=== PATIENT | female | born 1985 | race Caucasian/White ===

== ENCOUNTER → 2021-02-14 17:51 | Outpatient (CLI) | payer OTHER, SELFPAY ==
[2021-02-14 19:21] LABS: TSH w/ Reflex to FT4 1.77 uIU/mL (0.47-4.68)
== END ==
PROVIDERS: PCP Registered Nurse Diabetes Educator; Referring Provider Registered Nurse Diabetes Educator; Visit Provider Registered Nurse Diabetes Educator
DX: E03.8 Other specified hypothyroidism (principal); E06.3 Autoimmune thyroiditis
CPT/HCPCS: 36415; 84443

== ENCOUNTER → 2021-04-24 10:13 | Outpatient (CLI) | payer OTHER, SELFPAY ==
[2021-04-24 11:18] LABS: Hematocrit 38.4 % (36-46); Hemoglobin 13.1 g/dL (12.0-16.0); Mean Corpuscular Hemoglobin 29.5 PG (26-34); Mean Corpuscular Volume 86.6 fL (80-100); Platelet Count 295 X10^3/uL (150-400); Red Blood Cell Count 4.43 X10^6/uL (4.0-5.2); Red Cell Distribution Width 13.5 % (11.6-14.8); White Blood Cell Count 5.3 X10^3/uL (4.5-11.0)
[2021-04-24 12:40] LABS: Alanine Aminotransferase 23 IU/L (<35); Albumin 4.5 g/dL (3.5-5.0); Albumin Globulin Ratio 1.6 (1.0-2.8); Alkaline Phosphatase 53 U/L (38-126); Aspartate Aminotransferase 24 IU/L (14-36); BUN Creatinine Ratio 20.8 (6-22); Bilirubin Total 0.6 mg/dL (0.2-1.3); Blood Urea Nitrogen 10 mg/dL (7-17); Calcium 9.2 mg/dL (8.4-10.2); Carbon Dioxide 27 mmol/L (22-32); Chloride 103 mmol/L (98-107); Cholesterol 172 mg/dL (140-199); Estimated Glomerular Filt Rate > 60.0 mL/min (>60); Globulin 2.8 g/dL (1.7-4.1); Glucose 105 mg/dL (70-100); HDL Cholesterol 36 mg/dL (40-60); HEMOLYSIS < 15 (0-50); LDL Cholesterol Calculated 113 mg/dL (<100); Potassium 3.9 mmol/L (3.4-5.1); Sodium 139 mmol/L (137-145); Total Protein 7.3 g/dL (6.3-8.2); Triglycerides 113 mg/dL (35-150)
[2021-04-24 12:45] LABS: TSH w/ Reflex to FT4 2.32 uIU/mL (0.47-4.68)
[2021-04-24 12:46] LABS: Hemoglobin A1C% w Est Avg Glu 4.8 % (4.0-6.0)
[2021-04-24 12:49] LABS: Ferritin 34 ng/mL (6-137)
== END ==
PROVIDERS: PCP Registered Nurse Diabetes Educator; Referring Provider Registered Nurse Diabetes Educator; Visit Provider Registered Nurse Diabetes Educator
DX: E03.8 Other specified hypothyroidism (principal); E06.3 Autoimmune thyroiditis; L65.9 Nonscarring hair loss, unspecified; R53.83 Other fatigue
CPT/HCPCS: 36415; 80053; 80061; 82306; 82728; 83036; 84443; 85027

== ENCOUNTER 2021-09-17 12:31 | Emergency (ER) | payer OTHER, SELFPAY ==
[2021-09-17 12:41] VITALS: BP 141/83; PULSE 88; RESP 14; TEMP 37.3; O2SAT 99; BMI 31.0
[2021-09-17 13:29] LABS: Add Manual Diff / Slide Review NO; Basophils Absolute Auto 0 /uL (0-100); Basophils Percent Auto 0.5 % (0-2); Eosinophils Absolute Auto 100 /uL (0-450); Eosinophils Percent Auto 0.9 % (2-4); Hematocrit 38.4 % (36-46); Hemoglobin 13.2 g/dL (12.0-16.0); Lymphocytes Absolute Auto 1400 /uL (1100-4500); Lymphocytes Percent Auto 20.6 % (25-40); Mean Corpuscular HGB Conc 34.5 % (30-36); Mean Corpuscular Hemoglobin 29.5 PG (26-34); Mean Corpuscular Volume 85.6 fL (80-100); Monocytes Absolute Auto 400 /uL (0-900); Monocytes Percent Auto 5.6 % (3-14); Neutrophils Absolute Auto 5000 /uL (1500-7000); Neutrophils Percent Auto 72.4 % (50-75); Platelet Count 311 X10^3/uL (150-400); Red Blood Cell Count 4.49 X10^6/uL (4.0-5.2); Red Cell Distribution Width 14.3 % (11.6-14.8); White Blood Cell Count 6.8 X10^3/uL (4.5-11.0)
[2021-09-17 13:37] LABS: Prothrombin Time 11.4 SECONDS (10.1-12.7)
[2021-09-17 13:40] LABS: Alanine Aminotransferase 22 IU/L (<35); Albumin 4.7 g/dL (3.5-5.0); Albumin Globulin Ratio 1.4 (1.0-2.8); Alkaline Phosphatase 53 U/L (38-126); Aspartate Aminotransferase 25 IU/L (14-36); BUN Creatinine Ratio 20.4 (6-22); Bilirubin Total 0.6 mg/dL (0.2-1.3); Blood Urea Nitrogen 10 mg/dL (7-17); Calcium 9.3 mg/dL (8.4-10.2); Carbon Dioxide 26 mmol/L (22-32); Chloride 107 mmol/L (98-107); Creatine Kinase 53 U/L (30-135); Estimated Glomerular Filt Rate > 60.0 mL/min (>60); Globulin 3.3 g/dL (1.7-4.1); Glucose 100 mg/dL (70-100); HEMOLYSIS 21 (0-50); PTT Partial Thromboplastin Tim 34 SECONDS (26.4-36.2); Potassium 3.8 mmol/L (3.4-5.1); Sodium 140 mmol/L (137-145)
[2021-09-17 13:51] LABS: Troponin I < 0.012 ng/mL (0.01-0.034)
--- NOTE | 2021-09-17 13:52 | ED.NEUROSD ---
HPI - Neuro Symptoms/Deficit General Chief Complaint: Eye Problems Stated Complaint: blurred vision, sent by [facility] Time Seen by Provider: 09/17/21 13:41 Source: patient Mode of arrival: Ambulatory History of Present Illness HPI Narrative: Patient is a 35-year-old female who presents with atypical headache. She has had migraines in the past she gets 1 about once a week. Yesterday she was in the grocery store looking at her grocery list she looked up she was standing in front of the yogurt and really she had blurry vision in both eyes. She was not dizzy or lightheaded. Started feeling her heart pounding. She was able to make it through the checkout and into the car when she started having tingling in her face and more heart pounding and shortness of breath. Symptoms did resolve. She had no weakness. Her vision was only blurry for a few minutes. She had no difficulty speaking or facial droop. She then felt back to her normal self. She woke up this morning with atypical tension-like headache behind her eyes. She said this 1 is just different than all the other ones. Of but no visual changes today no numbness tingling or weakness. Overall feeling better. Her mom did have a stroke at the age of 50. She denies any chest pain palpitations fever neck pain or other symptoms today. On Anticoagulants: No Related Data Home Medications Medication Instructions Recorded Confirmed cholecalciferol (vitamin D3) 125 125 mcg PO DAILY 07/01/20 09/17/21 mcg (5,000 unit) capsule Previous Rx's Medication Instructions Recorded Tirosint 50 mcg capsule 50 mcg PO DAILY #90 cap NS 04/30/21 (levothyroxine) Allergies Allergy/AdvReac Type Severity Reaction Status Date / Time No Known Drug Allergies Allergy Verified 09/17/21 12:41 Review of Systems Review of Systems Narrative: GENERAL: Denies chills, fatigue, malaise, fever, sweats, travel HEENT: See HPI RESPIRATORY: Denies dyspnea, cough, wheezing, hemoptysis, sputum. CARDIOVASCULAR: Denies chest pain, palpitations, orthopnea, edema GASTROINTESTINAL: Denies nausea, vomiting, abdominal pain, diarrhea, constipation, melena. : Denies dysuria, frequency, incontinence, hematuria, urinary retention, flank pain. MUSCULOSKELETAL: Denies weakness, joint pain, or bony pain SKIN: No rash, no erythema, no pruritus NEUROLOGIC: See HPI PSYCHIATRIC: No concerning psychosocial issues. 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) Impaired fasting blood sugar Irregular menstrual cycle (~2019) Serum estradiol <50 pg/ml Surgical History Anesthesia [place] teeth removed (~2000) Family History Mother Hypertension Stroke Grandfather Diabetes mellitus History of heart disease Social History Smoking Status: Never smoker Smoking Status: Never smoker alcohol intake frequency: holidays/special occasions only Substance Use Type: does not use Exam Initial Vital Signs Initial Vital Signs: Vital Signs Temperature 99.1 F 09/17/21 12:41 Pulse Rate 88 09/17/21 12:41 Respiratory Rate 14 09/17/21 12:41 Blood Pressure 141/83 H 09/17/21 12:41 Pulse Oximetry 99 09/17/21 12:41 GENERAL: Well-appearing 35-year-old femaleand in no acute distress. HEENT: Head atraumatic,EOMI, pupils reactive, face symmetric, moist mucous membranes CARDIOVASCULAR: Regular rate and rhythm without murmurs, rubs or gallops. RESPIRATORY: Breath sounds equal bilaterally, no wheezes rales or rhonchi. ABDOMEN: Soft, nontender. Normoactive bowel sounds all 4 quadrants. No guarding or rebound. EXTREMITIES: Normal range of motion, no clubbing or edema. Neurovascularly intact NEUROLOGICAL: Alert and oriented x4.Normal gait and speech. Cranial nerves II through XII grossly intact. Good [id number], good [id number], strength equal bilaterally, no dysarthria or aphasia, sensation in tact to soft touch bilaterally, no visual changes, no facial droop SKIN: Warm, dry, no laceration, no petechiae, no rashes or lesions. Scores NIH Stroke Scale Level of Conciousness: Alert, keenly responsive Ask month/age: Answers both questions correctly. Open/close eyes, close hand: Performs both tasks correctly Best gaze horizontal: Normal Visual carr: No visual loss Facial palsy: Normal symetrical movement Left arm drift: No drift for full 10 sec Right arm drift: No drift for full 10 sec Left leg drift: No drift for full 5 sec Right leg drift: No drift for full 5 sec Limb ataxia: Absent Sensory on face/arms/legs: Normal, no sensory loss Best language: No aphasia, normal Dysarthria: Normal Extinction or inattention: No abnormality Total NIH Stroke scale score: 0 Course Orders Ordered: ED Orders 09/17/21 12:58 EKG-12 Lead Stat 09/17/21 13:15 Complete Blood Count AUTO DIFF Stat Comprehensive Metabolic Panel Stat Partial Thromboplastin Time Stat Prothrombin Time INR Stat Troponin & CK Cardiac Panel Stat 09/17/21 13:53 CT head/brain wo con Stat Discontinued Medications Ketorolac Tromethamine (Ketorolac 30 Mg/Ml Vial) 15 mg IV NOW ONE Stop: 09/17/21 13:54 Last Admin: 09/17/21 14:02 Dose: 15 mg Documented by: OVIDIO Vital Signs Vital signs: Vital Signs - 8 hr 09/17/21 12:41 09/17/21 15:02 Temperature 99.1 F Pulse Rate 88 70 Respiratory Rate 14 18 Blood Pressure 141/83 H 112/68 Pulse Oximetry 99 99 MDM - Neuro Symptoms/Deficit Lab Data Result diagrams: 09/17/21 13:15 09/17/21 13:15 Labs: Lab Results 09/17/21 09/17/21 09/17/21 Range/Units 13:15 13:15 13:15 WBC 6.8 (4.5-11.0) X10^3/uL RBC 4.49 (4.0-5.2) X10^6/uL Hgb 13.2 (12.0-16.0) g/dL Hct 38.4 (36-46) % MCV 85.6 (80-100) fL MCH 29.5 (26-34) PG MCHC 34.5 (30-36) % RDW 14.3 (11.6-14.8) % Plt Count 311 (150-400) X10^3/uL Neut % (Auto) 72.4 (50-75) % Lymph % (Auto) 20.6 L (25-40) % [place] % (Auto) 5.6 (3-14) % Eos % (Auto) 0.9 L (2-4) % Baso % (Auto) 0.5 (0-2) % Neut # (Auto) 5000 (1697-5768) /uL Lymph # (Auto) 1400 (3719-5476) /uL [place] # (Auto) 400 (0-900) /uL Eos # (Auto) 100 (0-450) /uL Baso # (Auto) 0 (0-100) /uL PT 11.4 (10.1-12.7) SECONDS INR 1.0 (0.9-1.3) APTT 34 (26.4-36.2) SECONDS Sodium 140 (137-145) mmol/L Potassium 3.8 (3.4-5.1) mmol/L Chloride 107 (98-107) mmol/L Carbon Dioxide 26 (22-32) mmol/L BUN 10 (7-17) mg/dL Creatinine 0.49 L (0.52-1.04) mg/dL Estimated GFR > 60.0 (>60) mL/min BUN/Creatinine Ratio 20.4 (6-22) Glucose 100 (70-100) mg/dL Calcium 9.3 (8.4-10.2) mg/dL Total Bilirubin 0.6 (0.2-1.3) mg/dL AST 25 (14-36) IU/L ALT 22 (<35) IU/L Alkaline Phosphatase 53 (38-126) U/L Total Creatine Kinase 53 (30-135) U/L CK-MB (CK-2) TNP CK-MB (CK-2) Rel Index TNP Troponin I < 0.012 (0.01-0.034) ng/mL Total Protein 8.0 (6.3-8.2) g/dL Albumin 4.7 (3.5-5.0) g/dL Globulin 3.3 (1.7-4.1) g/dL Albumin/Globulin Ratio 1.4 (1.0-2.8) Urine Dip Bedside Urine Glucose Negative Bedside Urine Bilirubin - Negative Bedside Urine Ketone - Negative Urine Specific [place] 1.020 Bedside Urine Occult Blood +/- Bedside Urine pH 7.0 Bedside Urine Protein - Negative Bedside Urine Urobilinogen 0.2 Bedside Urine Nitrite - Negative Bedside Urine Leukocytes +/- 15 Esterase ECG Data Interpretation: Normal sinus rhythm rate 76 AL interval 156 QRS [address] changes or T-wave inversion MDM Narrative Medical decision making narrative: Patient overall appears well she has absolutely no focal deficits. Some [place] she had brief episode of blurry vision gross sore and then had a mild anxiety reaction. She has no focal deficits today headache is a bit atypical for her head CT was done is of course negative. Blood work is reassuring. At this time no cause of episode of blurry vision yesterday. Recommend outpatient follow-up Discharge Plan Departure Patient Disposition: Home Clinical Impression: Headache Instructions: DI for Headache Activity Restrictions/Additional Instructions: *You have been diagnosed with headache *What to do: At this time blood work and CT scan are reassuring. He may need further workup for possible Neurology consultation if you continue to have frequent headaches. *Continue to take medications as directed *Follow up with your primary care provider in 2-3 days or call [phone] *Return to ER if you should have passing out, worsening blurry vision double vision, or any new, worsening or concerning symptoms Prescriptions: No Action levothyroxine [Tirosint] 50 mcg capsule 50 mcg PO DAILY Qty: 90 3RF cholecalciferol (vitamin D3) 125 mcg (5,000 unit) capsule 125 mcg PO DAILY 0RF Referrals: Donovan Hernandez ARNP [Primary Care Provider] -
--- NOTE | 2021-09-17 13:53 | DI.CT.S_ITS ---
PROCEDURE: CT HEAD/BRAIN WO CON INDICATIONS: atypical headache TECHNIQUE: Noncontrast 4.5 mm thick angled axial sections acquired from the foramen magnum to the vertex, with coronal and sagittal reformats. For radiation dose reduction, the following was used: automated exposure control, adjustment of mA and/or kV according to patient size. COMPARISON: None. FINDINGS: Image quality: Excellent. CSF spaces: Basal cisterns are patent. No extra-axial fluid collections. Ventricles are normal in size and shape. Brain: No midline shift. No intracranial masses or hemorrhage. [place]-white matter interface is normal. Skull and face: Calvarium and visualized facial bones are intact, without suspicious lesions. Sinuses: Visualized sinuses and mastoids are clear. IMPRESSION: 1. No acute intracranial process. Dictated by: Megan Hicks M.D. on 09/17/2021 at 14:18 Approved by: Megan Hicks M.D. on 09/17/2021 at 14:18
[2021-09-17] MEDS: KETOROLAC 30 MG/ML VIAL 15 MG IV (14:02)
[2021-09-17 15:02] VITALS: BP 112/68; PULSE 70; RESP 18; O2SAT 99
== END 2021-09-17 15:02 | disposition home or self-care (01) ==
PROVIDERS: Emergency Provider Emergency Medicine; PCP Registered Nurse Diabetes Educator
DX: R51.9 Headache, unspecified (principal); R20.2 Paresthesia of skin; H53.8 Other visual disturbances; R03.0 Elevated blood-pressure reading, without diagnosis of hypertension
CPT/HCPCS: 36415; 70450; 80053; 81003; 82550; 84484; 85025; 85610; 85730; 93005; 93010; 96374; 99284; J1885

== ENCOUNTER 2021-12-19 09:19 | Emergency (ER) | payer OTHER, SELFPAY ==
[2021-12-19] VITALS (10 sets, daily range): BP systolic 116–135; BP diastolic 58–69; PULSE 94–110; RESP 15–24; TEMP 37.1; O2SAT 96–98; BMI 29.7
[2021-12-19 09:49] LABS: Add Manual Diff / Slide Review NO; Basophils Absolute Auto 0 /uL (0-100); Basophils Percent Auto 0.3 % (0-2); Eosinophils Absolute Auto 100 /uL (0-450); Eosinophils Percent Auto 0.5 % (2-4); Hemoglobin 13.3 g/dL (12.0-16.0); Lymphocytes Absolute Auto 1100 /uL (1100-4500); Lymphocytes Percent Auto 9.3 % (25-40); Mean Corpuscular HGB Conc 34.8 % (30-36); Mean Corpuscular Hemoglobin 29.5 PG (26-34); Mean Corpuscular Volume 84.8 fL (80-100); Monocytes Absolute Auto 700 /uL (0-900); Monocytes Percent Auto 6.3 % (3-14); Neutrophils Absolute Auto 9600 /uL (1500-7000); Neutrophils Percent Auto 83.6 % (50-75); Platelet Count 309 X10^3/uL (150-400); Red Blood Cell Count 4.48 X10^6/uL (4.0-5.2); Red Cell Distribution Width 13.7 % (11.6-14.8); White Blood Cell Count 11.5 X10^3/uL (4.5-11.0)
[2021-12-19 10:02] LABS: Alanine Aminotransferase 28 IU/L (<35); Albumin 4.5 g/dL (3.5-5.0); Albumin Globulin Ratio 1.4 (1.0-2.8); Alkaline Phosphatase 58 U/L (38-126); Aspartate Aminotransferase 24 IU/L (14-36); BUN Creatinine Ratio 11.8 (6-22); Bilirubin Total 1.1 mg/dL (0.2-1.3); Blood Urea Nitrogen 6 mg/dL (7-17); Carbon Dioxide 23 mmol/L (22-32); Chloride 106 mmol/L (98-107); Estimated Glomerular Filt Rate > 60 mL/min (>60); Globulin 3.2 g/dL (1.7-4.1); Glucose 125 mg/dL (70-100); HEMOLYSIS < 15 (0-50); Lipase 25 U/L (23-300); Sodium 138 mmol/L (137-145); Total Protein 7.7 g/dL (6.3-8.2)
[2021-12-19 10:06] LABS: Bacteria Urine Many (>30); Culture Indicated Urine Cult Not Indicated; RBC Urine 1-5/HPF (0-5/HPF); Squamous Epithelial Cell Urine 5-10 /HPF (0-5/HPF); WBC Urine 1-5/HPF (0-5/HPF)
--- NOTE | 2021-12-19 11:54 | ED_ITS ---
HPI - Abdominal Pain General Chief Complaint: Abdominal Pain Stated Complaint: sharp pain in lower rt abdomen, lower back Time Seen by Provider: 12/19/21 11:24 Source: patient Mode of arrival: Ambulatory History of Present Illness HPI narrative: The patient is a 36-year-old female with history of hypothyroid presenting today with abdominal pain. Here she had an episode of abdominal pain a while ago she said the last 3 days it moved all around ventrally went away. However last night the pain returned it seems to be moving all around sometimes it is more on the right. She has no nausea no vomiting no diarrhea no fever or chills. She denies any painful or frequent urination. Related Data Home Medications Medication Instructions Recorded Confirmed cholecalciferol (vitamin D3) 125 125 mcg PO DAILY 07/01/20 09/17/21 mcg (5,000 unit) capsule Previous Rx's Medication Instructions Recorded Tirosint 50 mcg capsule 50 mcg PO DAILY #90 caps 04/30/21 (levothyroxine) Allergies Allergy/AdvReac Type Severity Reaction Status Date / Time No Known Drug Allergies Allergy Verified 12/19/21 09:29 Review of Systems Review of Systems Narrative: GENERAL: Denies chills, fatigue, malaise, fever, sweats, travel HEENT: Denies sinus pain, ear pain, sore throat, difficulty swallowing, neck pain RESPIRATORY: Denies dyspnea, cough, wheezing, hemoptysis, sputum. CARDIOVASCULAR: Denies chest pain, palpitations, orthopnea, edema GASTROINTESTINAL: See HPI : Denies dysuria, frequency, incontinence, hematuria, urinary retention, flank pain. MUSCULOSKELETAL: Denies weakness, joint pain, or bony pain SKIN: No rash, no erythema, no pruritus NEUROLOGIC: Denies weakness, dizziness, headache, numbness, change in speech, confusion PSYCHIATRIC: No concerning psychosocial issues. 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) Impaired fasting blood sugar Irregular menstrual cycle (~2019) Serum estradiol <50 pg/ml Surgical History Anesthesia [place] teeth removed (~2000) Family History Mother Hypertension Stroke Grandfather Diabetes mellitus History of heart disease Social History Smoking Status: Never smoker Smoking Status: Never smoker alcohol intake frequency: holidays/special occasions only Substance Use Type: does not use Exam Initial Vital Signs Initial Vital Signs: Vital Signs Temperature 98.7 F 12/19/21 09:27 Pulse Rate 110 H 12/19/21 09:27 Respiratory Rate 15 12/19/21 09:27 Blood Pressure 133/68 12/19/21 09:27 Pulse Oximetry 97 12/19/21 09:27 Oxygen Delivery Method 12/19/21 09:27 GENERAL: Alert pleasant 36-year-old female and in no acute distress. HEENT: Head atraumatic,EOMI, pupils reactive, face symmetric, moist mucous membranes CARDIOVASCULAR: Regular rate and rhythm without murmurs, rubs or gallops. RESPIRATORY: Breath sounds equal bilaterally, no wheezes rales or rhonchi. ABDOMEN: Soft, left lower quadrant pain no guarding no rebound left greater than right pain no right upper quadrant pain negative [place] EXTREMITIES: Normal range of motion, no clubbing or edema. Neurovascularly intact NEUROLOGICAL: Alert and oriented x4.Normal gait and speech. SKIN: Warm, dry, no laceration, no petechiae, no rashes or lesions. Course Orders Ordered: ED Orders 12/19/21 09:32 Urine Microscopic Stat 12/19/21 09:45 Complete Blood Count AUTO DIFF Stat Comprehensive Metabolic Panel Stat Lipase Stat 12/19/21 12:01 CT abdomen pelvis w con Stat Discontinued Medications Ketorolac Tromethamine (Ketorolac 30 Mg/Ml Vial) 15 mg IV NOW ONE Stop: 12/19/21 12:02 Last Admin: 12/19/21 12:28 Dose: 15 mg Documented By: AT Vital Signs Vital signs: Vital Signs - 8 hr 12/19/21 09:27 12/19/21 10:08 12/19/21 10:08 Temperature 98.7 F Pulse Rate 110 H 110 H Respiratory Rate 15 Blood Pressure 133/68 130/64 Pulse Oximetry 97 96 Oxygen Delivery Method Room Air 12/19/21 10:30 12/19/21 10:30 12/19/21 11:00 Temperature Pulse Rate 98 H Respiratory Rate 18 Blood Pressure 117/61 117/66 Pulse Oximetry 96 Oxygen Delivery Method 12/19/21 11:00 12/19/21 11:30 12/19/21 12:00 Temperature Pulse Rate 94 H Respiratory Rate 19 Blood Pressure 121/67 116/58 L Pulse Oximetry 98 Oxygen Delivery Method 12/19/21 12:00 12/19/21 12:20 12/19/21 12:20 Temperature Pulse Rate 100 H 103 H Respiratory Rate 17 24 Blood Pressure 116/67 Pulse Oximetry 98 98 Oxygen Delivery Method 12/19/21 12:30 12/19/21 12:30 12/19/21 13:00 Temperature Pulse Rate 99 H Respiratory Rate 22 Blood Pressure 123/69 132/60 Pulse Oximetry 97 Oxygen Delivery Method 12/19/21 13:00 12/19/21 13:30 12/19/21 13:30 Temperature Pulse Rate 99 H 99 H Respiratory Rate 19 19 Blood Pressure 135/63 Pulse Oximetry 98 97 Oxygen Delivery Method MDM - Abdominal Pain Lab Data Result diagrams: 12/19/21 09:45 12/19/21 09:45 Labs: Lab Results 12/19/21 12/19/21 12/19/21 Range/Units 09:32 09:45 09:45 WBC 11.5 H (4.5-11.0) X10^3/uL RBC 4.48 (4.0-5.2) X10^6/uL Hgb 13.3 (12.0-16.0) g/dL Hct 38.0 (36-46) % MCV 84.8 (80-100) fL MCH 29.5 (26-34) PG MCHC 34.8 (30-36) % RDW 13.7 (11.6-14.8) % Plt Count 309 (150-400) X10^3/uL Neut % (Auto) 83.6 H (50-75) % Lymph % (Auto) 9.3 L (25-40) % [place] % (Auto) 6.3 (3-14) % Eos % (Auto) 0.5 L (2-4) % Baso % (Auto) 0.3 (0-2) % Neut # (Auto) 9600 H (3967-1298) /uL Lymph # (Auto) 1100 (6944-8249) /uL [place] # (Auto) 700 (0-900) /uL Eos # (Auto) 100 (0-450) /uL Baso # (Auto) 0 (0-100) /uL Sodium 138 (137-145) mmol/L Potassium 4.0 (3.4-5.1) mmol/L Chloride 106 (98-107) mmol/L Carbon Dioxide 23 (22-32) mmol/L BUN 6 L (7-17) mg/dL Creatinine 0.51 L (0.52-1.04) mg/dL Estimated GFR > 60 (>60) mL/min BUN/Creatinine Ratio 11.8 (6-22) Glucose 125 H (70-100) mg/dL Calcium 9.0 (8.4-10.2) mg/dL Total Bilirubin 1.1 (0.2-1.3) mg/dL AST 24 (14-36) IU/L ALT 28 (<35) IU/L Alkaline Phosphatase 58 (38-126) U/L Total Protein 7.7 (6.3-8.2) g/dL Albumin 4.5 (3.5-5.0) g/dL Globulin 3.2 (1.7-4.1) g/dL Albumin/Globulin Ratio 1.4 (1.0-2.8) Lipase 25 (23-300) U/L Urine RBC 1-5/hpf (0-5/HPF) Urine WBC 1-5/hpf (0-5/HPF) Ur Squamous Epith Cells 5-10 /hpf H (0-5/HPF) Urine Bacteria Many (>30) H (None) Ur Culture Indicated? Cult not indicated Point of care testing: Point of Care Testing Test Results Negative Urine Dip Bedside Urine Glucose Negative Bedside Urine Bilirubin - Negative Bedside Urine Ketone - Negative Urine Specific [place] 1.015 Bedside Urine Occult Blood ++ Bedside Urine pH 6.5 Bedside Urine Protein +/- 15 Bedside Urine Urobilinogen +/- 1mg Bedside Urine Nitrite - Negative Bedside Urine Leukocytes ++ [address] scan - abdomen/pelvis: Radiologist's Impression: ent: Gerri Hernandez MR#: [id number] : 1985 Acct:[id number] Age/Sex: 36 / F Date of Service: 12/19/21 Loc: ED Accession Number: [id number] ?? Procedure: CT abdomen pelvis w con Ordering Provider: Lizzy Brennan D.O. PROCEDURE:? CT ABDOMEN PELVIS W CON ? INDICATIONS:? LLQ pain ? TECHNIQUE:? After the administration of intravenous contrast, axial sections acquired from the lung bases to the pubic symphysis.? Coronal and sagittal reformats were performed.? For radiation dose reduction, the following was used:? automated exposure control, adjustment of mA and/or kV according to patient size.? ? COMPARISON:? None. ? FINDINGS:? Image quality:? Excellent.? ? Lung bases:? Mild bibasilar atelectasis. Heart:? No significant findings. ? ABDOMEN: Liver:? Unremarkable.? ? Gallbladder:? Unremarkable.? ? Biliary ducts:? Unremarkable.? ? Pancreas:? Unremarkable.? ? Spleen:? Unremarkable.? ? Adrenal Glands:? Unremarkable.? ? Kidneys and Ureters:? Unremarkable.? ? ? Stomach and Bowel:? Stomach, small bowel loops, and colon are unremarkable.? The appendix is not definitively visualized.? The most likely candidate appears normal.? No secondary findings for acute appendicitis identified. Peritoneum:? No abnormal intraperitoneal fluid.? No free air.? ? Ventral Wall: ? No hernias.? Abdominal Nodes:? No retroperitoneal or mesenteric adenopathy by size criteria.? Vessels:? Aorta and inferior vena cava are normal in size.? ? PELVIS: Pelvic Organs:? Unremarkable.? ? Bladder:? Unremarkable.? ? Pelvic Nodes: No enlarged lymph nodes.? Miscellaneous: No hernias are seen. ? ? ? Bones:? Unremarkable.? IMPRESSION:? CT abdomen and pelvis without acute abnormalities to explain patient's symptoms. ? ? Dictated by: Salvador Peng M.D. on 12/19/2021 at 12:57 ? ? Approved by: Salvador Peng M.D. on 12/19/2021 at 13:03 ? MDM Narrative Medical decision making narrative: Patient blood work is overall reassuring. She is tender left lower quadrant this is the 2nd time it has happened. CT is fortunately negative. At this time recommend outpatient follow-up and conservative treatment Discharge Plan Departure Patient Disposition: Home Clinical Impression: Abdominal pain Instructions: Acute Abdominal Pain Activity Restrictions/Additional Instructions: *You have been diagnosed with abdominal pain *What to do: No cause of abdominal pain today. Blood work and CT is reassuring. *Continue to take medications as directed *Follow up with your primary care provider in 2-3 days or call [phone] *Return to ER if you should have worsening pain fever persistent vomiting or any new, worsening or concerning symptoms Prescriptions: No Action levothyroxine [Tirosint] 50 mcg capsule 50 mcg PO DAILY Qty: 90 3RF cholecalciferol (vitamin D3) 125 mcg (5,000 unit) capsule 125 mcg PO DAILY Referrals: Donovan Hernandez ARNP [Primary Care Provider] - Visit Report Forms: Patient Portal/API
--- NOTE | 2021-12-19 12:01 | DI.CT.S_ITS ---
PROCEDURE: CT ABDOMEN PELVIS W CON INDICATIONS: LLQ pain TECHNIQUE: After the administration of intravenous contrast, axial sections acquired from the lung bases to the pubic symphysis. Coronal and sagittal reformats were performed. For radiation dose reduction, the following was used: automated exposure control, adjustment of mA and/or kV according to patient size. COMPARISON: None. FINDINGS: Image quality: Excellent. Lung bases: Mild bibasilar atelectasis. Heart: No significant findings. ABDOMEN: Liver: Unremarkable. Gallbladder: Unremarkable. Biliary ducts: Unremarkable. Pancreas: Unremarkable. Spleen: Unremarkable. Adrenal Glands: Unremarkable. Kidneys and Ureters: Unremarkable. Stomach and Bowel: Stomach, small bowel loops, and colon are unremarkable. The appendix is not definitively visualized. The most likely candidate appears normal. No secondary findings for acute appendicitis identified. Peritoneum: No abnormal intraperitoneal fluid. No free air. Ventral Wall: No hernias. Abdominal Nodes: No retroperitoneal or mesenteric adenopathy by size criteria. Vessels: Aorta and inferior vena cava are normal in size. PELVIS: Pelvic Organs: Unremarkable. Bladder: Unremarkable. Pelvic Nodes: No enlarged lymph nodes. Miscellaneous: No hernias are seen. Bones: Unremarkable. IMPRESSION: CT abdomen and pelvis without acute abnormalities to explain patient's symptoms. Dictated by: Salvador Peng M.D. on 12/19/2021 at 12:57 Approved by: Salvador Peng M.D. on 12/19/2021 at 13:03
[2021-12-19] MEDS: KETOROLAC 30 MG/ML VIAL 15 MG IV (12:28)
== END 2021-12-19 13:59 | disposition home or self-care (01) ==
PROVIDERS: Emergency Provider Emergency Medicine; PCP Registered Nurse Diabetes Educator
DX: R10.32 Left lower quadrant pain (principal)
CPT/HCPCS: 36415; 74177; 80053; 81003; 81015; 81025; 83690; 85025; 96374; 99284; J1885; Q9967

== ENCOUNTER → 2022-04-10 16:23 | Outpatient (CLI) | payer OTHER, SELFPAY ==
[2022-04-10 17:19] LABS: Hemoglobin 13.6 g/dL (12.0-16.0); Mean Corpuscular HGB Conc 35.7 % (30-36); Mean Corpuscular Hemoglobin 29.9 PG (26-34); Mean Corpuscular Volume 83.7 fL (80-100); Platelet Count 293 X10^3/uL (150-400); Red Blood Cell Count 4.54 X10^6/uL (4.0-5.2); Red Cell Distribution Width 13.7 % (11.6-14.8); White Blood Cell Count 7.6 X10^3/uL (4.5-11.0)
[2022-04-10 17:44] LABS: Alanine Aminotransferase 33 IU/L (<35); Albumin 4.6 g/dL (3.5-5.0); Albumin Globulin Ratio 1.4 (1.0-2.8); Alkaline Phosphatase 67 U/L (38-126); Aspartate Aminotransferase 23 IU/L (14-36); BUN Creatinine Ratio 13.1 (6-22); Bilirubin Total 0.8 mg/dL (0.2-1.3); Blood Urea Nitrogen 8 mg/dL (7-17); Calcium 9.4 mg/dL (8.4-10.2); Carbon Dioxide 29 mmol/L (22-32); Chloride 102 mmol/L (98-107); Cholesterol 199 mg/dL (140-199); Estimated Glomerular Filt Rate > 60 mL/min (>60); Globulin 3.2 g/dL (1.7-4.1); Glucose 99 mg/dL (70-100); HDL Cholesterol 39 mg/dL (40-60); HEMOLYSIS < 15 (0-50); LDL Cholesterol Calculated 130 mg/dL (<100); Potassium 3.8 mmol/L (3.4-5.1); Sodium 140 mmol/L (137-145); Total Protein 7.8 g/dL (6.3-8.2); Triglycerides 149 mg/dL (35-150)
[2022-04-10 17:57] LABS: Vitamin D 25 Hydroxy (D3) 45.6 ng/mL (30.0-100.0)
[2022-04-10 18:11] LABS: TSH w/ Reflex to FT4 1.49 uIU/mL (0.47-4.68)
[2022-04-11 17:30] LABS: Deamidated Gliadin Ab IgA 6 units (0-19); Deamidated Gliadin Ab IgG 1 units (0-19); Immunoglobulin A,Qn 174 mg/dL (87-352); t-Transglutaminase IgA 3 U/mL (0-3)
== END ==
PROVIDERS: PCP Registered Nurse Diabetes Educator; Referring Provider Registered Nurse Diabetes Educator; Visit Provider Registered Nurse Diabetes Educator
DX: E03.8 Other specified hypothyroidism (principal); E06.3 Autoimmune thyroiditis; E55.9 Vitamin D deficiency, unspecified; E78.5 Hyperlipidemia, unspecified; R73.01 Impaired fasting glucose
CPT/HCPCS: 36415; 80053; 80061; 82306; 82784; 83036; 83516; 84443; 85027

== ENCOUNTER → 2022-05-21 10:20 | Outpatient (CLI) | payer OTHER, SELFPAY ==
--- NOTE | 2022-05-21 10:22 | DI.MG.S_ITS ---
BILATERAL DIGITAL SCREENING MAMMOGRAM 3D/2D WITH CAD: 05/21/2022 CLINICAL: Routine screening. Family history of breast cancer. Baseline exam. No prior exams were available for comparison. Both breasts are heterogeneously dense, which may obscure small masses (category c / 51-75% glandular tissue). Current study was also evaluated with a Computer Aided Detection (CAD) system. No significant masses, calcifications, or other findings are seen in either breast. IMPRESSION: NEGATIVE There is no mammographic evidence of malignancy. A 1 year screening mammogram is recommended. Based on Tyrer-Cuzick model (a risk assessment model), the patient's lifetime risk is 22.4% and her 10 year risk is 2.3%. If a patient has an elevated risk, a more comprehensive evaluation should be considered and/or a referral to a genetic counselor. The [place] [employer], [place] [employer], and NCCN Guidelines advise the consideration of Breast MRI as an adjunct to screening mammography in patients whose Lifetime risk to develop breast cancer is 20% or higher. This exam was interpreted at Station ID: [id number]. NOTE: For mammograms, a report in lay terms will be sent to the patient. Approximately 15% of breast malignancies will not be visualized mammographically. In the management of a palpable breast mass, a negative mammogram must not discourage biopsy of a clinically suspicious lesion. Electronically Signed By: Olivia austin/brissa:05/21/2022 17:48:23 letter sent: Normal Exam ACR BI-RADS Category 1: Negative [id number]
== END ==
PROVIDERS: PCP Registered Nurse Diabetes Educator; Referring Provider Registered Nurse Diabetes Educator; Visit Provider Registered Nurse Diabetes Educator
DX: Z12.31 Encounter for screening mammogram for malignant neoplasm of breast (principal); Z80.3 Family history of malignant neoplasm of breast
CPT/HCPCS: 77063; 77067